=== PATIENT | female | born 2000 | race Hispanic/Latino ===

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

== ENCOUNTER 2024-09-23 14:21 | Emergency (ER) | payer SELFPAY ==
[2024-09-23] MEDS ORDERED: ACETAMINOPHEN 500 MG TAB ONE (14:29)
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
--- NOTE | 2024-09-23 15:53 | RAD REPORT ---
EXAM: Knee Left 2 View INDICATION: PAIN COMPARISON: None FINDINGS: No acute fracture. Small knee effusion. No significant focal degenerative changes. Other: N/A IMPRESSION: No acute osseous abnormality involving the imaged knee. Nonspecific small knee effusion w hich could indicate internal derangement.
[2024-09-23 16:28] VITALS: BP 98/84; TEMP 98.2; O2SAT 99
== END 2024-09-23 15:41 | disposition home or self-care (01) ==
LOC: ER 14:21
DX: M23.8X2 Other internal derangements of left knee (principal); S50.812A Abrasion of left forearm, initial encounter; W18.30XA Fall on same level, unspecified, initial encounter
CPT/HCPCS: 99283